=== PATIENT | female | born 1975 | race Caucasian/White ===

== ENCOUNTER 2016-09-19 06:19 | Emergency (ER) | payer OTHER ==
--- NOTE | ~2016-09-19 | ER ---
PATIENT'S NAME: SALOMÓN JONES [facility] AGE: 40 Y [address] ROOM: [place] [id number] LOCATION: ED ADMIT DATE: 09/19/2016 ER/Outpatient Report DISCHARGE DATE: 09/19/2016 FAMILY PHYSICIAN: James Covarrubias MD ATTENDING PHYSICIAN: Allen Retana CHIEF COMPLAINT: Headache. HISTORY OF PRESENT ILLNESS: Ms. Jones presents with a headache. She has had this headache since last evening. She does have a history of migraines, but this is slightly different. The onset was slow and insidious. It feels about the same now as when it started, and it gets worse with lying down. She has not taken anything to make this better, and she has only tried to sleep. She denies any neck pain or stiffness. It is more frontal than usual. She denies any vision changes. She does not like the bright lights, but they do not really bother her. She has no fevers, chills, nausea, or vomiting. She has no known history or family history of connective tissue diseases. She cannot give a family history of aneurysms. She does not use drugs. PAST MEDICAL HISTORY: Documented on the record and reviewed by me. SOCIAL HISTORY: Documented on the record and reviewed by me. MEDICATIONS: Documented on the record and reviewed by me. ALLERGIES: DOCUMENTED ON THE RECORD AND REVIEWED BY ME. REVIEW OF SYSTEMS: All systems were reviewed and negative except as noted in the HPI. PHYSICAL EXAMINATION: VITAL SIGNS: Blood pressure 163/121, pulse 90, respiratory rate is 18, temperature 98.2, and SpO2 is 96% on room air. Pain is rated at 8/10. Discharge Vitals: Blood pressure 144/91, pulse 72, and respiratory rate is 18. GENERAL: Age-appropriate female, sitting upright on the exam chair, in no apparent distress, in moderate discomfort with lights on. NEUROLOGIC: The patient is awake and alert. GCS is 15. No focal deficits. No asymmetry. No meningismus. No photophobia. The patient's coordination is PATIENT'S NAME: SALOMÓN JONES [facility] AGE: 40 Y [address] ROOM: [place], [place] [id number] LOCATION: ED ADMIT DATE: 09/19/2016 ER/Outpatient Report DISCHARGE DATE: 09/19/2016 FAMILY PHYSICIAN: James Covarrubias MD ATTENDING PHYSICIAN: Allen Retana appropriate, and there is no gait abnormality. HEENT: Normocephalic, atraumatic. The eyes are PERRL. The oropharynx is clear. NECK: Supple. Trachea is midline. CHEST: Heart has a regular rate and rhythm with no murmurs. Lungs are clear to auscultation bilaterally. No rhonchi, wheezes, or rales. ABDOMEN: Soft, nontender, and nondistended. No rebound or guarding. BACK: Normal to inspection and palpation. No CVA or spinal tenderness. EXTREMITIES: Warm and well perfused with no deformities or edema. SKIN: Clean, dry, and intact. No rashes. LABORATORY AND X-RAY DATA: None. IMPRESSION: Headache. EMERGENCY DEPARTMENT COURSE: The patient was seen and evaluated as above. She was given approximately 400 mL of normal saline in addition to Toradol, Compazine, and Benadryl with complete resolution of her headache. She had significant concerns about having a stroke. I see no evidence of that today. Her presentation is not consistent with subarachnoid hemorrhage. She does have a history of high blood pressure, but the onset and symptomatology are not consistent. I do not think that is the case for her today. We discussed imaging at length. She has decided to forego it today. She has no focal deficits. She does note that she has felt like she is falling more to the left side recently, and I discussed this with her. This could be atypical migraine. I do not have any evidence to justify MRI today. Recommend close followup with primary care provider as needed. Return immediately to the ER if worsening symptoms, uncontrolled symptoms, or other concerning findings. All questions were answered, and the patient was discharged in asymptomatic condition with markedly improved vital signs. MD ARTEMIO AGRAWAL/bhavin /[id number] P d: 09/19/16 1843 t: 10/05/16 0909, OUTPATIENT REPORT
[~2016-09-19 06:19] MED LIST: APRI 28 DAY TA1 EACH PO; LIDODERM 5% P1 PATCH TOP; NUCYNTA50 MG PO
== END 2016-09-19 07:38 | disposition disaster alternative care site (69) ==
LOC: GMED 06:19
DX: R51 Headache (principal); I10 Essential (primary) hypertension; G51.0 Bell's palsy; Z88.0 Allergy status to penicillin; Z88.2 Allergy status to sulfonamides; Z88.1 Allergy status to other antibiotic agents; Z88.5 Allergy status to narcotic agent; Z79.899 Other long term (current) drug therapy; Z90.710 Acquired absence of both cervix and uterus; Z98.890 Other specified postprocedural states
CPT/HCPCS: J0780; J1200; J1885; J7030